=== PATIENT | female | born 1965 | race American Indian/Alaskan Native ===

== ENCOUNTER 2019-01-27 01:41 | Emergency (ER) | payer SELFPAY ==
[2019-01-27] MEDS ORDERED: diphenhydrAMINE 50 MG/ML VIAL IV STA (02:37)
[2019-01-27] MEDS ORDERED: cloNIDine 0.2 MG TAB PO STA (02:37)
[2019-01-27] MEDS ORDERED: METOCLOPRAMIDE 10 MG/2 ML INJ IV STA (02:37)
[2019-01-27] MEDS ORDERED: ONDANSETRON 4 MG/2 ML INJ IV STA (02:37)
--- NOTE | 2019-01-27 03:12 | Cat Scan Report ---
CT head without contrast INDICATION : Hypertensive headache with dizziness. TECHNIQUE: Axial imaging performed from the skull apex through the skull base without the use of con trast. All CT examinations performed at this facility utilize dose modulation, iterative reconstruct ion or weight-based dosing, when appropriate, to reduce radiation dose to as low as reasonably achiev able. COMPARISON: None FINDINGS: No acute intracranial hemorrhage or parenchymal abnormality. Ventricles are normal in si ze and appear symmetric. Soft tissues including the orbits appear normal. No acute osseous abnorm ality. Sinuses and mastoid air cells are clear. IMPRESSION: No acute abnormality. Signer Name: Yuniel Ring MD Signed: 01/27/2019 3:07 AM Workstation Name: [id number]
[2019-01-27 03:53] VITALS: BP 133/71
--- NOTE | 2019-01-27 04:33 | Emergency Department Report ---
ED Headache HPI - General Chief Complaint: High BP Stated Complaint: BLOOD PRESSURE Time Seen by Provider: 01/27/19 02:36 - History of Present Illness Initial Comments: 54-year-old female with a past history of fibromyalgia in conjunction with possible hypertension states that she has not been prescribed or given any medications for this this issue but her family member states that she has a long history of high blood pressure reports no fever, chills, sweats but has had adult throbbing headache with photophobia Allergies/Adverse Reactions: Allergies No Known Allergies Allergy (Unverified 01/27/19 02:00) Home Medications: Ambulatory Orders Butalb/Acetaminophen/Caffeine [Fioricet 50-300-40 mg CAP] 1 cap PO Q6HR PRN #20 cap 01/27/19 amLODIPine 10 mg PO DAILY #20 tab 01/27/19 ED Review of Systems ROS: Stated complaint: BLOOD PRESSURE Other details as noted in HPI Comment: All other systems reviewed and negative ED Past Medical Hx - Past Medical History Previous Medical History?: Yes Hx Hypertension: Yes Additional medical history: Fibromyalgia - Surgical History Past Surgical History?: Yes Additional Surgical History: Myomectomy for fibroids - Social History Smoking Status: Never Smoker - Medications Home Medications: Home Medications Medication Instructions Recorded Confirmed Last Taken Type Butalb/Acetaminophen/Caffeine 1 cap PO Q6HR PRN #20 cap 01/27/19 Unknown Rx [Fioricet 50-300-40 mg CAP] amLODIPine 10 mg PO DAILY #20 tab 01/27/19 Unknown Rx ED Physical Exam - General Limitations: No Limitations General appearance: alert, in no apparent distress - Head Head exam: Present: atraumatic, normocephalic - Eye Eye exam: Present: normal appearance, PERRL, EOMI, other (negative funduscopic examination) Pupils: Present: normal accommodation - ENT ENT exam: Present: normal exam, normal orophraynx, mucous membranes moist - Neck Neck exam: Present: normal inspection, full ROM - Respiratory Respiratory exam: Present: normal lung sounds bilaterally. Absent: respiratory distress, wheezes, rales, rhonchi - Cardiovascular Cardiovascular Exam: Present: regular rate, normal rhythm. Absent: bradycardia, tachycardia, systolic murmur, diastolic murmur, rubs, gallop - GI/Abdominal GI/Abdominal exam: Present: soft, normal bowel sounds. Absent: distended, tenderness, guarding, rebound - Extremities Exam Extremities exam: Present: normal inspection, normal capillary refill - Back Exam Back exam: Present: normal inspection - Neurological Exam Neurological exam: Present: alert, oriented X3 - Psychiatric Psychiatric exam: Present: normal affect, normal mood - Skin Skin exam: Present: warm, dry, intact, normal color. Absent: rash ED Course Vital Signs 01/27/19 01/27/19 01/27/19 01:49 02:04 02:15 Temperature 98.5 F 98.5 F Pulse Rate 88 82 Respiratory 18 18 Rate Blood Pressure 234/117 234/117 O2 Sat by Pulse 100 100 100 Oximetry 01/27/19 01/27/19 01/27/19 02:30 03:12 03:15 Temperature Pulse Rate 68 82 Respiratory 16 Rate Blood Pressure 190/92 186/101 234/117 O2 Sat by Pulse 100 94 Oximetry 01/27/19 01/27/19 01/27/19 03:16 03:30 03:45 Temperature Pulse Rate 72 69 76 Respiratory 17 16 15 Rate Blood Pressure 181/89 181/89 133/71 O2 Sat by Pulse 99 99 99 Oximetry 01/27/19 05:45 Temperature 98.5 F Pulse Rate 76 Respiratory 15 Rate Blood Pressure O2 Sat by Pulse 99 Oximetry ED Medical Decision Making - Radiology Data Radiology results: [place] [address] Cat Scan Report Signed Patient: LILIBETH LOVE MR#: [id number] : 1965 Acct:[id number] Age/Sex: 54 / F ADM Date: 01/27/19 Loc: ED Attending Dr: Ordering Physician: AMARI SANCHEZ Date of Service: 01/27/19 Procedure(s): CT head/brain wo con Accession Number(s): [id number] cc: AMARI SANCHEZ CT head without contrast INDICATION : Hypertensive headache with dizziness. TECHNIQUE: Axial imaging performed from the skull apex through the skull base without the use of contrast. All CT examinations performed at this facility utilize dose modulation, iterative reconstruction or weight-based dosing, when appropriate, to reduce radiation dose to as low as reasonably achievable. COMPARISON: None FINDINGS: No acute intracranial hemorrhage or parenchymal abnormality. Ventricles are normal in size and appear symmetric. Soft tissues including the orbits appear normal. No acute osseous abnormality. Sinuses and mastoid air cells are clear. IMPRESSION: No acute abnormality. Signer Name: Yuniel Ring MD Signed: 01/27/2019 3:07 AM Workstation Name: [id number] Transcribed By: RANDAL Dictated By: Yuniel Ring MD Electronically Authenticated By: Yuniel Ring MD Signed Date/Time: 01/27/19306 DD/ 6 TD/TT: - Medical Decision Making Ms. Love presents with an acute onset headache for the last couple days in duration. Patient has a known past history of headaches. There Is Not a history of anticoagulation, trauma, , cancer or immunocompromised state. Mental status was normal, no neurological deficits were noted. Differential Diagnosis considered includes hypertensive emergency, subarachnoid hemorrhage, meningitis, trauma, CVA, migraine. IV was placed and {Meds} given with {Outcome} relief of symptoms. CT head was negative for acute bleed, infarct, mass, or shift. LP was defered as the patient improved significantly and was discharged in stable condition. Recommendations were given for follow-up with PCP in 1-2 days and to return to the ED for worsening of headache or any other concerns Critical care attestation.: If time is entered above; I have spent that time in minutes in the direct care of this critically ill patient, excluding procedure time. ED Disposition Clinical Impression: Cephalgia, HTN (hypertension) Disposition: -01 TO HOME OR SELFCARE Is pt being admited?: No Does the pt Need Aspirin: No Condition: Stable Instructions: Migraine Headache (ED), Tension Headache (ED), Acute Headache (ED), Hypertension (ED) Additional Instructions: During the patients emergency department stay they were noted to have at least one blood pressure measure reading greater than 120/80. Due to this measurement I verbally educated the patient on hypertension and recommended they follow-up with their primary care doctor in the next 5-7 days for repeat measurement of their blood pressure and if it remains persistently elevated that their primary care doctor may start them on medications to control their blood pressure. I also recommended several lifestyle modifications (weight loss, dietary sodium restriction, increase physical activity and moderate alcohol consumption). Prescriptions: amLODIPine 10 mg PO DAILY #20 tab Butalb/Acetaminophen/Caffeine [Fioricet 50-300-40 mg CAP] 1 cap PO Q6HR PRN #20 cap PRN Reason: Headache Referrals: [facility] [Provider Group] - 3-5 Days BONILLA BENEDICT MD [Staff Physician] - 2-3 Days
== END 2019-01-27 05:45 | disposition home or self-care (01) ==
LOC: ED 01:41
DX: I10 Essential (primary) hypertension (principal); R51 Headache; Z79.899 Other long term (current) drug therapy
CPT/HCPCS: 70450; 96374; 96375; 99284; J1200; J2405; J2765